=== PATIENT | female | born 1955 | race Caucasian/White ===

== ENCOUNTER 2016-10-12 19:38 | Emergency (ER) | payer MEDICAID ==
[~2016-10-12] VITALS: Ht 167.6 cm; Wt 78.5 kg
[2016-10-12 19:40] VITALS: Ht 167.6 cm; Wt 78.5 kg
[2016-10-12] MEDS ORDERED: ALBU2.5V2 AEROSOL (19:50)
[2016-10-12] MEDS ORDERED: ALBU6.7H INH (19:50)
[2016-10-12] MEDS ORDERED: NAPR220C11 PO (19:54)
[2016-10-12] MEDS ORDERED: IBUP-1724 PO (19:54)
[2016-10-12] MEDS ORDERED: DIPH25CA84 PO (19:54)
--- NOTE | 2016-10-12 19:55 | ERPDOC ---
Departure Disposition Decision Date: Oct 12, 2016 Disposition Decision Time: 21:39 (KYLE WEST APRN) Disposition: 01 DISCHARGED HOME, SELF-CARE Impression Impression (KYLE WEST APRN) Impression: Primary Impression: Upper respiratory infection, acute Additional Impression: COPD exacerbation Severity: Mild (KYLE WEST APRN) Condition: Improved Seen By: Mid-level only (KYLE WEST APRN) Patient Instructions: COPD (Chronic Obstructive Pulmonary Disease) (ED), Upper Respiratory Infection (ED) Problems/Meds/Labs Reviewed?: Yes Medications reviewed and manag: Yes (KYLE WEST APRN) Additional Instructions: 1. Use nebulized treatments as prescribed to help with shortness of air. 2. Take steroids as prescribed to help with inflammation in the lungs 3. Establish care with a local provider for follow up 4. Return to ER if you develop increased shortness of air or increasing chest pain. Follow up care ordered?: Yes Mental Status: Alert, Oriented (KYLE WEST APRN) Scripts Ipratropium/Albuterol Sulfate (Iprat-Albut 0.5-3(2.5) mg/3 ml) 3 Ml Ampul.neb 1 UNIT AEROSOL Q4H, #1 BOX Prov: KYLE WEST APRN 10/12/16 Prednisone (Prednisone) 20 Mg Tablet 60 MG PO WB for 5 Days, #15 TAB Take 3 (20 mg) tablets, by mouth, once a day with breakfast. Prov: KYLE WEST APRN 10/12/16 HPI - Dyspnea General Chief Complaint: Dyspnea/Respdistress Stated Complaint: DIFF BREATHING Time Seen by Provider: 19:45 Source: patient Exam Limitations: no limitations (KYLE WEST APRN) Time Seen by Provider: 20:47 (NOVEMBERPEG DO) HPI - Dyspnea Initial Comments Sammie is a 61 year old female with a history of COPD. Reports a upper respiratory illness developing three days ago with cough, congestion, low grade temp. Today felt more chest discomfort and shortness of air. History of what sounds like an empyema in the past with 3 1/2 week hospitalization at [facility] where she was in a coma for respiratory failure. Reports having left lung surgery and chest tubes. This happened in Aug 2014, was worried this was similar to that event. History of being on o2 but not recently. Moved to [place] from [place] within the past year, no local physician yet. Did use Proventil inhaler at home this am. Does have a nebulizer but did not use it today. Normally fairly active. Smokes 1/4 ppd. Occurred At: home Onset/Timing: Gradual Duration: other (3 days) Prior Episodes/Possible Cause: occasional episodes Associated Symptoms: chest pain, cough, shortness of breath Hx of Similar Symptoms: Yes (KYLE WEST APRN) Allergies: Coded Allergies: codeine (Verified Adverse Reaction, Unknown, VOMITING, 10/15/16) Past History Past Medical History Metabolic: hypertension Respiratory: COPD, pneumonia (KYLE WEST APRN) Surgical History General: other (left lung surgery) (KYLE WEST APRN) Vaccines Hx Influenza Vaccination: Yes Hx Pneumococcal Vaccination: No (KYLE WEST APRN) Social History Smoking Status: Current every day smoker # of Packs/Tins per Day: 1/4 Second Hand Exposure: Yes Substance Use Type: does not use Housing: house Household Members: family Current Occupational Status: unemployed (KYLE WEST APRN) Review of Systems Constitutional Constitutional: DENIES: fever (low grade temps) (KYLE WEST APRN) ENMT Sinuses: congestion Mouth/Throat: DENIES: sore throat (KYLE WEST APRN) Cardiovascular Cardiac: chest pain (KYLE WEST APRN) Pulmonary Respiratory: cough, dyspnea (KYLE WEST APRN) GI Upper Abdomen: DENIES: vomiting (KYLE WEST APRN) Integumentary Skin: DENIES: rash (KYLE WEST APRN) All other Systems All Other Systems: Reviewed and Negative (KYLE WEST APRN) Physical Exam General General Nourishment: well nourished, well developed, appears stated age, no acute distress (KYLE WEST APRN) Vitals and Pain First Documented Vital Signs Date Time Temp Pulse Resp B/P Pulse Ox O2 Delivery O2 Flow Rate FiO2 10/12/16 19:40 99.0 109 30 172/81 97 Room Air (NOVEMBER,PEG M DO) Vitals and Pain Weight: Kilograms: 78.500 Height (feet): 5 Height (inches): 6.00 Triage Pain Scale: (WEST,KYLE ICT HELP DESK TECHNICIAN) ENMT (brief) ENMT Brief: FOUND: mucosa moist, NOT FOUND: normal dentition (decayed teeth), pharnyx erythema (BRETT,KYLE ICT HELP DESK TECHNICIAN) Neck (brief) Neck: FOUND: trachea midline, NOT FOUND: JVD (WEST,KYLE ICT HELP DESK TECHNICIAN) Respiratory (brief) Respiratory: FOUND: wheezes (decreased aeration) (BRETT,KYLE ICT HELP DESK TECHNICIAN) Cardiovascular (brief) Cardiac: FOUND: other (tachycardia) (MIESHA WESTARA ICT HELP DESK TECHNICIAN) Abdomen (brief) Abdominal Brief: FOUND: bowel normo active x4, soft, NOT FOUND: tender (WEST, KYLE ICT HELP DESK TECHNICIAN) Lymphatic (brief) Lymphatic Brief: FOUND: adenopathy, NOT FOUND: lymphedema (MIESHA WESTARA ICT HELP DESK TECHNICIAN) Integumentary (brief) Integumentary Brief: FOUND: dry, pink, warm, NOT FOUND: rash (BRETT,KYLE ICT HELP DESK TECHNICIAN) Psychiatric (brief) Psychiatric Brief: FOUND: alert, attentive, normal affect, oriented (MIESHA WESTARA ICT HELP DESK TECHNICIAN) Differential Diagnoses Considering: Acute Bronchitis, COPD Exacerbation, Pneumonia (MIESHA WESTARA ICT HELP DESK TECHNICIAN) Progress Results/Orders Orders Procedure Category Date Status Time Iv Lock (Ed Only) EDM 10/12/16 Transmitted 19:51 Cbc W/Auto LAB 10/12/16 Complete Diff-Reflex Manual 19:51 Bmp - Basic Metabolic LAB 10/12/16 Complete Panel 19:51 EKG EKG 10/12/16 Taken 19:51 Chest, Pa & Lateral RAD 10/12/16 Resulted 19:51 Troponin I W LAB 10/12/16 Complete Hemolysis Index Albuterol/Ipratropium PHA 10/12/16 Complete (Duoneb) 20:00 Potassium Chloride PHA 10/12/16 Complete (Kdur) 21:00 D-Dimer LAB 10/12/16 Complete Ketorolac (Toradol) PHA 10/12/16 Complete 21:30 ( DO) Lab Results Laboratory Tests Test 10/12/16 20:30 White Blood Count 7.9T/MM3 Red Blood Count 4.48M/MM3 Hemoglobin 14.3GM/DL Hematocrit 42.1% Mean Corpuscular Volume 94.0UM3 Mean Corpuscular Hemoglobin 31.9UUG Mean Corpuscular Hemoglobin Concent 34.0GM/DL RDW Standard Deviation 45.7FL Platelet Count 227T/MM3 Mean Platelet Volume 10.7UM3 Immature Granulocyte % (Auto) 0.1% Neutrophils (%) (Auto) 76.1% Lymphocytes (%) (Auto) 18.1% Monocytes (%) (Auto) 5.3% Eosinophils (%) (Auto) 0.1% Basophils (%) (Auto) 0.3% Absolute Immature Granulocyte (auto 0.01T/MM3 Absolute Neutrophils (auto) 6.0T/MM3 Absolute Lymphocytes (auto) 1.4T/MM3 Absolute Monocytes (auto) 0.4T/MM3 Absolute Eosinophils (auto) 0.0T/MM3 Absolute Basophils (auto) 0.0T/MM3 D-Dimer 219NG/ML Turbidity < 20 Sodium Level 142MEQ/L Potassium Level 3.2MEQ/L Chloride Level 106MEQ/L Carbon Dioxide Level 22MEQ/L Anion Gap 14MEQ/L Blood Urea Nitrogen 15.0MG/DL Creatinine 0.9MG/DL Glomerular Filtration Rate Calc 64 BUN/Creatinine Ratio 17RATIO Glucose Level 124MG/DL Calculated Osmolality 275MOSM/KG Calcium Level 8.8MG/DL Icterus Index < 2 Troponin I < 0.012ng/ml Chemistry Specimen Hemolysis 20 () Medications Current ED Medications Albuterol/ Ipratropium (Duoneb) 3 ml O ONCE AEROSOL Last administered on 20:00; Start 10/12/16 at 20:00; Stop 10/12/16 at 21:57; Status DC Potassium Chloride (Kdur) 20 meq O ONCE PO Last administered on 10/12/16 21: 24; Start 10/12/16 at 21:00; Stop 10/12/16 at 21:57; Status DC Ketorolac Tromethamine (Toradol) 30 mg O ONCE IV Last administered on 21:22; Start 10/12/16 at 21:30; Stop 10/12/16 at 21:31; Status DC () Progress Progress 2140 - Toradol given for patient's chest discomfort which started over 24 hours ago. States that really helped. Discussed discharge plan to include nebulized treatments and steroids. She agrees to establish care with local provider, [facility]. (KYLE WEST APRN) EKG EKG : Rate: >100 Rhythm: sinus [place]: normal QRS: normal Intervals: normal ST/T: non-specific changes Interpreted by: signing physician (KYLE WEST APRN) Xray Xray : Xray: CXR PA/Lat Interpretation: Abnormal (POSS pleural effusion) (KYLE WEST APRN) KYLE WEST APRN Oct 12, 2016 19:55 NOVEMBERPEG DO Oct 16, 2016 00:53
[2016-10-12] MEDS ORDERED: ALBUTEROL/IPRATROPIUM INHAL. 2.5mg-0.5mg/3ml Neb. AEROSOL ONE (20:00)
--- NOTE | 2016-10-12 20:12 | NUR ---
LAB LAB AT BEDSIDE FOR BLOOD DRAW
[2016-10-12 20:37] LABS: BASOPHILS % (AUTO) 0.3 % (0-2); EOSINOPHILS % (AUTO) 0.1 % (0-4); HCT - HEMATOCRIT 42.1 % (36-46); HGB - HEMOGLOBIN 14.3 GM/DL (12-16); IMMATURE GRANULOCYTE # (AUTO) 0.01 T/MM3 (0.00-0.03); IMMATURE GRANULOCYTE % (AUTO) 0.1 % (0.0-0.5); LYMPHOCYTES # (AUTO) 1.4 T/MM3 (1-4.8); LYMPHOCYTES % (AUTO) 18.1 % (23-45); MEAN CORPUSCULAR HGB 31.9 UUG (26-34); MEAN PLATELET VOLUME 10.7 UM3 (9.4-12.4); MONOCYTES # (AUTO) 0.4 T/MM3 (0-0.8); MONOCYTES % (AUTO) 5.3 % (0-9.0); NEUTROPHILS % (AUTO) 76.1 % (33-66); RED BLOOD COUNT 4.48 M/MM3 (4.00-5.20); WBC - WHITE BLOOD COUNT 7.9 T/MM3 (4.5-11.0)
[2016-10-12 20:45] LABS: ANION GAP 14 MEQ/L (5-15); BUN/CREATININE RATIO 17 RATIO (6-26); CALCIUM 8.8 MG/DL (8.4-10.2); CHLORIDE 106 MEQ/L (98-107); CO2 - CARBON DIOXIDE 22 MEQ/L (22-30); CREATININE 0.9 MG/DL (0.7-1.2); GLOMERULAR FILTRATION RATE 64; GLUCOSE 124 MG/DL (65-110); POTASSIUM 3.2 MEQ/L (3.6-5); SODIUM 142 MEQ/L (134-144)
--- NOTE | 2016-10-12 20:49 | NUR ---
XRAY PATIENT TO RADIOLOGY PER CART, STABLE.
[2016-10-12] MEDS ORDERED: POTASSIUM CHLORIDE 20 MEQ TABLET PO ONE (21:00)
--- OUTSIDE RECORDS SUMMARY | 2016-10-12 21:11 | XMS REPORT | Referral Summary ---
Author Author [facility] Organization [facility] Address Unknown Phone Unavailable Care Team Providers Care Cell Maker Name Role Phone Justina Johnson Primary Care Physician [phone] Encounter [facility] [id number] Date(s): 05/07/15 - 05/07/15 [facility] [address] [place] [address] Discharge Diagnosis: Hypertension Discharge Diagnosis: Dental abscess Discharge Diagnosis: Nausea and vomiting Discharge Diagnosis: Chronic pain Discharge Disposition: 01-Home or Self Care Attending Physician: Fernando Ramirez DO Admitting Physician: Fernando Ramirez DO Vital Signs Most recent to 1 oldest [Reference Range]: Temperature Oral 36.6 degC [35.8-37.3 degC] (05/07/15 2:08 AM) Peripheral Pulse 86 bpm Rate [60-100 bpm] (05/07/15 5:49 AM) Heart Rate Monitored 77 bpm [60-100 bpm] (05/07/15 5:35 AM) Respiratory Rate 20 br/min [14-20 br/min] (05/07/15 5:49 AM) Blood Pressure 151/113 mmHg [90-140/60-90 mmHg] *HI* (05/07/15 5:49 AM) Mean Arterial 134 mmHg Pressure, Cuff (05/07/15 5:35 AM) SpO2 93 % (05/07/15 5:49 AM) Problem List Condition Effective Dates Status Health Status Informant Angina at Active patient rest(Confirmed) Chronic back Active patient pain(Confirmed) COPD (chronic Active patient obstructive pulmonary disease)(Confirmed) Heart Active patient disease(Confirmed) HTN Active patient (hypertension)(Confi rmed) Allergies, Adverse Reactions, Alerts Substance Reaction Severity Status codeine Active Medications Benadryl 0 Refill(s) Start Date: 06/07/14 Status: Ordered clindamycin 150 mg oral capsule 300 mg 2 caps, Oral, QID, X 7 days, # 56 caps, 0 Refill(s) Start Date: 05/07/15 Stop Date: 05/14/15 Status: Ordered cloNIDine 0 Refill(s) Start Date: 05/07/15 Status: Ordered ibuprofen 0 Refill(s) Start Date: 06/07/14 Status: Ordered ibuprofen 400 mg oral tablet 1 tabs, Oral, q8hr, as needed for fever/pain, # 30 tabs, 0 Refill(s) Start Date: 06/07/14 Status: Ordered methadone Oral, 0 Refill(s) Start Date: 06/07/14 Status: Ordered ondansetron 4 mg oral tablet, disintegrating 4 mg 1 tabs, Oral, q8hr, Nausea, # 20 tabs, 0 Refill(s) Start Date: 05/07/15 Stop Date: 05/15/15 Status: Ordered Phenergan 0 Refill(s) Start Date: 06/07/14 Status: Ordered Results Hematology Most recent to 1 oldest [Reference Range]: WBC [4.8-10.8 8.9 10*3/uL 10*3/uL] (05/07/15 3:10 AM) RBC [4.00-5.20] 4.42 (05/07/15 3:10 AM) Hgb [12.0-16.0 14.7 gm/dL gm/dL] (05/07/15 3:10 AM) Hct [37.0-47.0 %] 42.9 % (05/07/15 3:10 AM) MCV [82.0-99.0 fL] 97.1 fL (05/07/15 3:10 AM) MCH [27.0-32.0 pg] 33.3 pg *HI* (05/07/15 3:10 AM) MCHC [32.0-36.0 34.3 gm/dL gm/dL] (05/07/15 3:10 AM) RDW [11.5-14.5 %] 13.2 % (05/07/15 3:10 AM) Platelet [150-400 271 10*3/uL 10*3/uL] (05/07/15 3:10 AM) MPV [9.4-12.4 fL] 10.4 fL (05/07/15 3:10 AM) Immature 0.2 % Granulocytes (05/07/15 3:10 AM) [0.0-1.0 %] Neutrophils [51-75 52 % %] (05/07/15 3:10 AM) Lymphocytes [20-46 38 % %] (05/07/15 3:10 AM) Monocytes [4-11 %] 7 % (05/07/15 3:10 AM) Eosinophils [0-4 %] 2 % (05/07/15 3:10 AM) Basophils [0-2 %] 1 % (05/07/15 3:10 AM) Neutro Absolute 4.65 10*3 [1.90-7.00 10*3] (05/07/15 3:10 AM) Lymph Absolute 3.40 10*3 [0.80-3.30 10*3] *HI* (05/07/15 3:10 AM) [place] Absolute 0.58 10*3 [0.30-1.00 10*3] (05/07/15 3:10 AM) Eos Absolute 0.21 10*3 [0.00-0.50 10*3] (05/07/15 3:10 AM) Baso Absolute 0.06 10*3 [0.00-0.20 10*3] (05/07/15 3:10 AM) Nucleated RBC 0.0 /100 WBC Automated [0 /100 (05/07/15 3:10 AM) WBC] Chemistry Most recent to 1 oldest [Reference Range]: Sodium Lvl [136-144 137 mEq/L mEq/L] (05/07/15 3:10 AM) Potassium Lvl 4.3 mEq/L [3.6-5.1 mEq/L] (05/07/15 3:10 AM) Chloride [99-109 103 mEq/L mEq/L] (05/07/15 3:10 AM) CO2 [22-32 mEq/L] 25 mEq/L (05/07/15 3:10 AM) AGAP [3-20] 9 (05/07/15 3:10 AM) BUN [4-20 mg/dL] 10 mg/dL (05/07/15 3:10 AM) Glucose Lvl [70-100 86 mg/dL mg/dL] (05/07/15 3:10 AM) Creatinine Lvl 0.66 mg/dL [0.44-1.03 mg/dL] (05/07/15 3:10 AM) eGFR [>60] >60 1 (05/07/15 3:10 AM) Calcium Lvl 9.1 mg/dL [8.6-10.0 mg/dL] (05/07/15 3:10 AM) Albumin Lvl [3.5-4.8 4.3 gm/dL gm/dL] (05/07/15 3:10 AM) Total Protein 7.9 gm/dL [6.1-7.9 gm/dL] (05/07/15 3:10 AM) Globulin [1.9-4.3 3.6 gm/dL gm/dL] (05/07/15 3:10 AM) ALT [14-54 U/L] 19 U/L (05/07/15 3:10 AM) AST [15-41 U/L] 33 U/L (05/07/15 3:10 AM) Alk Phos [26-104 127 U/L U/L] *HI* (05/07/15 3:10 AM) Bili Total [0.2-1.2 0.6 mg/dL 2 mg/dL] (05/07/15 3:10 AM) Troponin [<0.06 <0.05 ng/mL ng/mL] (05/07/15 3:10 AM) Lipase Lvl [8-48 12 U/L U/L] (05/07/15 3:10 AM) 1Result Comment: Multiply eGFR results by 1.21 for race. 2Result Comment: Naproxen, specifically the metabolite O-desmethylnaproxen, may cause spurious elevation in Total Bilirubin levels. Urinalysis Most recent to 1 oldest [Reference Range]: UA Color Lt Yellow (05/07/15 3:10 AM) UA Appear Clear (05/07/15 3:10 AM) UA pH [5.0-8.0] 7.0 (05/07/15 3:10 AM) UA Leuk Est Negative [Negative] (05/07/15 3:10 AM) UA Nitrite Negative [Negative] (05/07/15 3:10 AM) UA Protein Negative [Negative] (05/07/15 3:10 AM) UA Glucose Negative [Negative] (05/07/15 3:10 AM) UA Ketones Negative [Negative] (05/07/15 3:10 AM) UA Urobilinogen Negative [<1.0] (05/07/15 3:10 AM) UA Bili [Negative] Negative (05/07/15 3:10 AM) UA Blood [Negative] Negative (05/07/15 3:10 AM) UA Spec Grav 1.008 [1.003-1.030] (05/07/15 3:10 AM) Type Clean Catch (05/07/15 3:10 AM) Immunizations Vaccine Date Refusal Reason hepatitis A adult vaccine 11/20/06 hepatitis B adult vaccine 11/21/06 Procedures No data available for this section Social History Social History Type Response Smoking Status Current every day smoker Assessment and Plan No data available for this section
--- OUTSIDE RECORDS SUMMARY | 2016-10-12 21:11 | XMS REPORT | Referral Summary ---
Author Author [facility] Organization [facility] Address Unknown Phone Unavailable Care Team Providers Care Applications Project Manager Name Role Phone Justina Johnson Primary Care Physician [phone] Encounter [facility] [id number] Date(s): 09/23/15 - 09/23/15 [facility] [address] [place] [address] Discharge Diagnosis: Encounter for wound re-check Discharge Diagnosis: Abscess Discharge Disposition: 01-Home or Self Care Vital Signs Most recent to 1 oldest [Reference Range]: Temperature Oral 36.8 degC [35.8-37.3 degC] (09/23/15 2:37 PM) Peripheral Pulse 95 bpm Rate [60-100 bpm] (09/23/15 2:37 PM) Respiratory Rate 20 br/min [14-20 br/min] (09/23/15 2:37 PM) Blood Pressure 159/85 mmHg [90-140/60-90 mmHg] *HI* (09/23/15 2:37 PM) SpO2 98 % (09/23/15 2:37 PM) Problem List Condition Effective Dates Status Health Status Informant Acute Active pain(Confirmed) Angina at Active patient rest(Confirmed) At risk for Active injury(Confirmed)1 At risk of pressure Active sore(Confirmed) Chronic back Active patient pain(Confirmed) COPD (chronic Active patient obstructive pulmonary disease)(Confirmed) Heart Active patient disease(Confirmed) HTN Active patient (hypertension)(Confi rmed) Hepatitis Active patient B(Confirmed) Hepatitis Active patient C(Confirmed) 1Problem added automatically by system based on initiation of Risk for Injury Plan of Care Allergies, Adverse Reactions, Alerts Substance Reaction Severity Status codeine Active Medications Bactrim DS 800 mg-160 mg oral tablet 2 tabs, Oral, BID, for infection, X 10 days, # 40 tabs, 0 Refill(s) Start Date: 09/20/15 Stop Date: 09/30/15 Status: Ordered Benadryl 50 mg, Oral, TID, as needed for allergy symptoms/sleep, 0 Refill(s) Start Date: 06/07/14 Status: Ordered cloNIDine 0.2 mg oral tablet 0.2 mg 1 tabs, Oral, Bedtime (once a day), 0 Refill(s) Start Date: 08/03/15 Status: Ordered ibuprofen 400 mg oral tablet 1 tabs, Oral, q8hr, as needed for fever/pain, # 30 tabs, 0 Refill(s) Start Date: 06/07/14 Status: Ordered lisinopril 20 mg oral tablet 20 mg 1 tabs, Oral, Daily, 0 Refill(s) Start Date: 08/09/15 Status: Ordered methadone 10 mg oral tablet 35 mg 3.5 tabs, Oral, BID, [facility], 0 Refill(s) Start Date: 08/03/15 Status: Ordered Phenergan 25 mg, Oral, TID, as needed for nausea/vomiting, 0 Refill(s) Start Date: 06/07/14 Status: Ordered Zoloft 50 mg oral tablet 50 mg 1 tabs, Oral, qAM, 0 Refill(s) Start Date: 08/09/15 Status: Ordered Results No data available for this section Immunizations Vaccine Date Refusal Reason hepatitis A adult vaccine 11/20/06 hepatitis B adult vaccine 11/21/06 influenza virus vaccine, inactivated 08/04/15 Patient Refuses Procedures Procedure Date Related Diagnosis Body Site Thoracotomy Social History Social History Type Response Smoking Status Current every day smoker; Tobacco use per day: Less than Pack Assessment and Plan No data available for this section
--- OUTSIDE RECORDS SUMMARY | 2016-10-12 21:11 | XMS REPORT | Referral Summary ---
Author Author [facility] Organization [facility] Address Unknown Phone Unavailable Care Team Providers Care Computer Language Coder Name Role Phone Justina Johnson Primary Care Physician [phone] Encounter [facility] [id number] Date(s): 06/30/15 - 06/30/15 [facility] [address] [place] [address] Discharge Diagnosis: Headache Discharge Diagnosis: Hypertension Discharge Disposition: 01-Home or Self Care Attending Physician: Richard Hurtado MD Admitting Physician: Richard Hurtado MD Vital Signs Most recent to 1 oldest [Reference Range]: Temperature Oral 36.6 degC [35.8-37.3 degC] (06/30/15 1:19 AM) Peripheral Pulse 67 bpm Rate [60-100 bpm] (06/30/15 5:19 AM) Heart Rate Monitored 84 bpm [60-100 bpm] (06/30/15 5:01 AM) Respiratory Rate 18 br/min [14-20 br/min] (06/30/15 5:19 AM) Blood Pressure 169/104 mmHg [90-140/60-90 mmHg] *HI* (06/30/15 5:19 AM) Mean Arterial 128 mmHg Pressure, Cuff (06/30/15 5:01 AM) SpO2 97 % (06/30/15 5:19 AM) Problem List Condition Effective Dates Status Health Status Informant Angina at Active patient rest(Confirmed) Chronic back Active patient pain(Confirmed) COPD (chronic Active patient obstructive pulmonary disease)(Confirmed) Heart Active patient disease(Confirmed) HTN Active patient (hypertension)(Confi rmed) Allergies, Adverse Reactions, Alerts Substance Reaction Severity Status codeine Active Medications Benadryl 0 Refill(s) Start Date: 06/07/14 Status: Ordered cloNIDine 0 Refill(s) Start Date: 05/07/15 Status: Ordered ibuprofen 0 Refill(s) Start Date: 06/07/14 Status: Ordered ibuprofen 400 mg oral tablet 1 tabs, Oral, q8hr, as needed for fever/pain, # 30 tabs, 0 Refill(s) Start Date: 06/07/14 Status: Ordered methadone Oral, 0 Refill(s) Start Date: 06/07/14 Status: Ordered Phenergan 0 Refill(s) Start Date: 06/07/14 Status: Ordered Zofran 4 mg oral tablet 4 mg 1 tabs, Oral, q6hr, Nausea or Vomiting, # 30 tabs, 0 Refill(s) Start Date: 06/30/15 Stop Date: 06/30/16 Status: Ordered Results Hematology Most recent to 1 oldest [Reference Range]: WBC [4.8-10.8 6.6 10*3/uL 10*3/uL] (06/30/15 1:47 AM) RBC [4.00-5.20] 4.12 (06/30/15 1:47 AM) Hgb [12.0-16.0 14.1 gm/dL gm/dL] (06/30/15 1:47 AM) Hct [37.0-47.0 %] 42.5 % (06/30/15 1:47 AM) MCV [82.0-99.0 fL] 103.2 fL *HI* (06/30/15 1:47 AM) MCH [27.0-32.0 pg] 34.2 pg *HI* (06/30/15 1:47 AM) MCHC [32.0-36.0 33.2 gm/dL gm/dL] (06/30/15 1:47 AM) RDW [11.5-14.5 %] 14.6 % *HI* (06/30/15 1:47 AM) Platelet [150-400 261 10*3/uL 10*3/uL] (06/30/15 1:47 AM) MPV [9.4-12.4 fL] 10.1 fL (06/30/15 1:47 AM) Immature 0.2 % Granulocytes (06/30/15 1:47 AM) [0.0-1.0 %] Neutrophils [51-75 56 % %] (06/30/15 1:47 AM) Lymphocytes [20-46 33 % %] (06/30/15 1:47 AM) Monocytes [4-11 %] 7 % (06/30/15 1:47 AM) Eosinophils [0-4 %] 4 % (06/30/15 1:47 AM) Basophils [0-2 %] 1 % (06/30/15 1:47 AM) Neutro Absolute 3.71 10*3 [1.90-7.00 10*3] (06/30/15 1:47 AM) Lymph Absolute 2.15 10*3 [0.80-3.30 10*3] (06/30/15 1:47 AM) [place] Absolute 0.44 10*3 [0.30-1.00 10*3] (06/30/15 1:47 AM) Eos Absolute 0.27 10*3 [0.00-0.50 10*3] (06/30/15 1:47 AM) Baso Absolute 0.04 10*3 [0.00-0.20 10*3] (06/30/15 1:47 AM) Nucleated RBC 0.0 /100 WBC Automated [0 /100 (06/30/15 1:47 AM) WBC] Chemistry Most recent to 1 oldest [Reference Range]: Sodium Lvl [136-144 142 mEq/L mEq/L] (06/30/15 1:47 AM) Potassium Lvl 4.3 mEq/L 1 [3.6-5.1 mEq/L] (06/30/15 1:47 AM) Chloride [99-109 108 mEq/L mEq/L] (06/30/15 1:47 AM) CO2 [22-32 mEq/L] 26 mEq/L (06/30/15 1:47 AM) AGAP [3-20] 8 (06/30/15 1:47 AM) BUN [4-20 mg/dL] 14 mg/dL (06/30/15 1:47 AM) Glucose Lvl [70-100 94 mg/dL mg/dL] (06/30/15 1:47 AM) Creatinine Lvl 0.76 mg/dL [0.44-1.03 mg/dL] (06/30/15 1:47 AM) eGFR [>60] >60 2 (06/30/15 1:47 AM) Calcium Lvl 8.4 mg/dL [8.6-10.0 mg/dL] *LOW* (06/30/15 1:47 AM) Albumin Lvl [3.5-4.8 4.0 gm/dL gm/dL] (06/30/15 1:47 AM) Total Protein 7.2 gm/dL [6.1-7.9 gm/dL] (06/30/15 1:47 AM) Globulin [1.9-4.3 3.2 gm/dL gm/dL] (06/30/15 1:47 AM) ALT [14-54 U/L] 34 U/L (06/30/15 1:47 AM) AST [15-41 U/L] 51 U/L *HI* (06/30/15 1:47 AM) Alk Phos [26-104 120 U/L U/L] *HI* (06/30/15 1:47 AM) Bili Total [0.2-1.2 0.5 mg/dL 3 mg/dL] (06/30/15 1:47 AM) Troponin [<0.06 <0.05 ng/mL ng/mL] (06/30/15 1:47 AM) 1Result Comment: Hemolyzed specimen. The following tests may be affected: ALT, AST, Potassium, and Total Bilirubin. 2Result Comment: Multiply eGFR results by 1.21 for race. 3Result Comment: Naproxen, specifically the metabolite O-desmethylnaproxen, may cause spurious elevation in Total Bilirubin levels. Immunizations Vaccine Date Refusal Reason hepatitis A adult vaccine 11/20/06 hepatitis B adult vaccine 11/21/06 Procedures No data available for this section Social History Social History Type Response Smoking Status Current every day smoker Assessment and Plan No data available for this section
--- OUTSIDE RECORDS SUMMARY | 2016-10-12 21:11 | XMS REPORT | Referral Summary ---
Author Author [facility] Organization [facility] Address Unknown Phone Unavailable Care Team Providers Care [employer] Name Role Phone Justina Johnson Primary Care Physician [phone] Encounter [facility] [id number] Date(s): 05/07/15 - 05/07/15 [facility] [address] [place] [address] Discharge Diagnosis: Hypertension Final: Periapical abscess without sinus Final: Unspecified abdominal pain Final: Nausea with vomiting, unspecified Final: Essential (primary) hypertension Final: Chronic obstructive pulmonary disease, unspecified Final: Nicotine dependence, unspecified, uncomplicated Discharge Diagnosis: Dental abscess Discharge Diagnosis: Nausea [...] Reaction Severity Status codeine Active Medications Benadryl 50 mg, Oral, TID, as needed [...] Refill(s) Start Date: 08/09/15 Status: Ordered Results Hematology Most recent to [...] 10*3 [0.80-3.30 10*3] *HI* (05/07/15 3:10 AM) [place] Absolute 0.58 10*3 [0.30-1.00 10*3] (05/07/15 3:10 [...]
--- OUTSIDE RECORDS SUMMARY | 2016-10-12 21:11 | XMS REPORT | Referral Summary ---
Author Author Via [facility] Organization Via [facility] Address Unknown Phone Unavailable Care Team Providers Care Construction Framer Name Role Phone Justina Johnson Primary Care Physician [phone] Encounter [facility] [id number] Date(s): 08/02/15 - 08/09/15 Via [facility] [address] [place] [address] Discharge Disposition: 03-Senior Living Facility Attending Physician: Obi Templeton MD Admitting Physician: Beltran Quan MD Vital Signs Most recent to 1 oldest [Reference Range]: Temperature Oral 36.5 degC [35.8-37.3 degC] (08/09/15 3:00 PM) Temperature Temporal 36.2 degC Artery [36.3-37.8 *LOW* degC] (08/05/15 7:00 AM) Peripheral Pulse 72 bpm Rate [60-100 bpm] (08/09/15 3:00 PM) Heart Rate Monitored 77 bpm [60-100 bpm] (08/06/15 3:58 PM) Respiratory Rate 18 br/min [14-20 br/min] (08/09/15 3:00 PM) Blood Pressure 109/65 mmHg [90-140/60-90 mmHg] (08/09/15 3:00 PM) Mean Arterial 112 mmHg Pressure, Cuff (08/05/15 8:45 AM) SpO2 96 % (08/09/15 3:00 PM) Problem List Condition Effective Dates Status Health Status Informant Acute Active pain(Confirmed) Angina at Active patient rest(Confirmed) At risk for Active injury(Confirmed)1 At risk of pressure Active sore(Confirmed) Chronic back Active patient pain(Confirmed) COPD (chronic Active patient obstructive pulmonary disease)(Confirmed) Heart Active patient disease(Confirmed) HTN Active patient (hypertension)(Confi rmed) 1Problem added automatically by system based on [...] to 1 oldest [Reference Range]: WBC [4.8-10.8 7.0 10*3/uL 10*3/uL] (08/05/15 4:11 AM) RBC [4.00-5.20] 3.78 *LOW* (08/05/15 4:11 AM) Hgb [12.0-16.0 12.3 gm/dL gm/dL] (08/05/15 4:11 AM) Hct [37.0-47.0 %] 39.2 % (08/05/15 4:11 AM) MCV [82.0-99.0 fL] 103.7 fL *HI* (08/05/15 4:11 AM) MCH [27.0-32.0 pg] 32.5 pg *HI* (08/05/15 4:11 AM) MCHC [32.0-36.0 31.4 gm/dL gm/dL] *LOW* (08/05/15 4:11 AM) RDW [11.5-14.5 %] 13.9 % (08/05/15 4:11 AM) Platelet [150-400 216 10*3/uL 10*3/uL] (08/05/15 4:11 AM) MPV [9.4-12.4 fL] 11.2 fL (08/05/15 4:11 AM) Immature 0.2 % Granulocytes (08/02/15 10:38 PM) [0.0-1.0 %] Neutrophils [51-75 83 % %] *HI* (08/02/15 10:38 PM) Lymphocytes [20-46 11 % %] *LOW* (08/02/15 10:38 PM) Monocytes [4-11 %] 5 % (08/02/15 10:38 PM) Eosinophils [0-4 %] 1 % (08/02/15 10:38 PM) Basophils [0-2 %] 0 % (08/02/15 10:38 PM) Neutro Absolute 7.89 10*3 [1.90-7.00 10*3] *HI* (08/02/15 10:38 PM) Lymph Absolute 1.06 10*3 [0.80-3.30 10*3] (08/02/15 10:38 PM) [place] Absolute 0.46 10*3 [0.30-1.00 10*3] (08/02/15 10:38 PM) Eos Absolute 0.08 10*3 [0.00-0.50 10*3] (08/02/15 10:38 PM) Baso Absolute 0.04 10*3 [0.00-0.20 10*3] (08/02/15 10:38 PM) Sed Rate [0-23] 5 (08/03/15 6:51 AM) Chemistry Most recent to 1 oldest [Reference Range]: Sodium Lvl [136-144 138 mEq/L mEq/L] (08/07/15 6:39 AM) Potassium Lvl 4.1 mEq/L [3.6-5.1 mEq/L] (08/07/15 6:39 AM) Chloride [99-109 101 mEq/L mEq/L] (08/07/15 6:39 AM) CO2 [22-32 mEq/L] 31 mEq/L (08/07/15 6:39 AM) AGAP [3-20] 6 (08/07/15 6:39 AM) BUN [4-20 mg/dL] 6 mg/dL (08/07/15 6:39 AM) Glucose Lvl [70-100 95 mg/dL mg/dL] (08/07/15 6:39 AM) Creatinine Lvl 0.73 mg/dL [0.44-1.03 mg/dL] (08/07/15 6:39 AM) eGFR [>60] >60 1 (08/07/15 6:39 AM) Calcium Lvl 8.8 mg/dL [8.6-10.0 mg/dL] (08/07/15 6:39 AM) Albumin Lvl [3.5-4.8 3.6 gm/dL gm/dL] (08/07/15 6:39 AM) Total Protein 6.1 gm/dL [6.1-7.9 gm/dL] (08/04/15 6:11 AM) Globulin [1.9-4.3 2.9 gm/dL gm/dL] (08/04/15 6:11 AM) ALT [14-54 U/L] 30 U/L (08/04/15 6:11 AM) AST [15-41 U/L] 75 U/L *HI* (08/04/15 6:11 AM) Alk Phos [26-104 96 U/L U/L] (08/04/15 6:11 AM) Bili Total [0.2-1.2 1.0 mg/dL 2 mg/dL] (08/04/15 6:11 AM) Magnesium Lvl 2.2 mg/dL [1.8-2.5 mg/dL] (08/06/15 6:00 AM) Phosphorus [2.4-4.7 3.5 mg/dL 3 mg/dL] (08/07/15 6:39 AM) Total CK [38-234 619 U/L U/L] *HI* (08/07/15 6:39 AM) Troponin [<0.06 <0.05 ng/mL ng/mL] (08/02/15 10:38 PM) Ammonia [9-35 27 mcmol/L mcmol/L] (08/04/15 6:11 AM) Vitamin B12 Lvl 275 pg/mL [213-816 pg/mL] (08/03/15 6:51 AM) Folate Lvl [7.0-31.4 13.6 ng/mL ng/mL] (08/03/15 6:51 AM) Prolactin [5.2-26.5 18.9 ng/mL ng/mL] (08/03/15 6:51 AM) Blood Glucose, 212 mg/dL Capillary [74-106 *HI* mg/dL] (08/04/15 10:00 AM) Hep A IgM Negative (08/03/15 6:51 AM) Hep Bs Ag Negative (08/03/15 6:51 AM) Hep C Ab Positive 4 *ABN* (08/03/15 6:51 AM) Hep B Core IgM Negative (08/03/15 6:51 AM) TSH with Reflex Free 0.79 T4 [0.35-5.50] (08/03/15 6:51 AM) Hgb A1c [4.1-5.6 %] 5.9 % *HI* (08/03/15 6:51 AM) eAvg Glucose 122.6 mg/dL (08/03/15 6:51 AM) Procalcitonin <0.05 ng/mL 5 [0.00-0.09 ng/mL] (08/03/15 6:51 AM) 1Result Comment: Multiply eGFR results by 1.21 for race. 2Result Comment: Naproxen, specifically the metabolite O-desmethylnaproxen, may cause spurious elevation in Total Bilirubin levels. 3Result Comment: High dosages of liposomal Amphotericin B (AmBisome) therapy or other drug preparations that use a liposomal envelope to facilitate drug delivery may cause falsely elevated results for phosphorus. 4Result Comment: If clinically indicated, Positive HCV EIA results may be confirmed by Hepatitis C RNA PCR. 5Result Comment: Normal: <0.1 ng/mL (infants >72 hrs - adults) Suspected Lower Respiratory Tract Infection 0.10-0.25 ng/mL=Low likelihood for bacterial infection; Antibiotics discouraged. >0.25 ng/mL=Increased likelihood for bacterial infection; Antibiotics encouraged. Suspected Sepsis: Strongly consider initiating antibiotics in all unstable patients. 0.10-0.50 ng/mL=Low likelihood for sepsis; Antibiotics discouraged. >0.50 ng/mL=Increased likelihood for sepsis; Antibiotics encouraged. Decisions on antibiotic use should not be based solely on procalcitonin levels. If antibiotics are administered, repeat procalcitonin testing should be obtained every 2-3 days to consider early antibiotic cessation. PCT is a dynamic biomarker and most useful when trends are analyzed over time in accompaniment with other clinical data. Interpretation should be based upon clinical context and algorithms. Therapeutic Drug Monitoring Most recent to 1 oldest [Reference Range]: Acetaminophen Lvl <10 ug/mL [10-30 ug/mL] (08/02/15 10:38 PM) Salicylate Lvl [0-30 <4 mg/dL mg/dL] (08/02/15 10:38 PM) Toxicology Most recent to 1 oldest [Reference Range]: Ethanol Lvl Not Detected (08/02/15 10:38 PM) U Amphetamine Scrn Negative (08/02/15 10:39 PM) U Cocaine Scrn Negative (08/02/15 10:39 PM) U Cannab Scrn Negative (08/02/15 10:39 PM) U Opiate Scrn Negative (08/02/15 10:39 PM) U PCP Scrn Negative (08/02/15 10:39 PM) U Benzodiazepine Negative Scrn (08/02/15 10:39 PM) U Barbiturate Scrn Negative (08/02/15 10:39 PM) Methadone Lvl Positive *ABN* (08/02/15 10:39 PM) Tricyclics Negative 1 (08/02/15 10:39 PM) 1Result Comment: Cut-off concentrations: Amphetamines: 1000 ng/mL Cocaine: 300 ng/mL Cannabinoid: 50 ng/mL Opiate: 300 ng/mL Phencyclidine (PCP): 25 ng/mL Benzodiazepine: 200 ng/mL Barbiturate: 200 ng/mL Methadone: 300 ng/mL Tricyclic: 300 ng/mL The urine drug screen assays are qualitative screens. A more specific GC/MS method must be performed to obtain a confirmed analytical result. Unconfirmed screening results must not be used for non-medical purposes(e.g. employment or legal testing) Urinalysis Most recent to 1 oldest [Reference Range]: UA Color Yellow (08/02/15 10:38 PM) UA Appear Sl Cloudy (08/02/15 10:38 PM) UA pH [5.0-8.0] 6.0 (08/02/15 10:38 PM) UA Leuk Est Trace [Negative] *ABN* (08/02/15 10:38 PM) UA Nitrite Negative [Negative] (08/02/15 10:38 PM) UA Protein Pos 2+ [Negative] *ABN* (08/02/15 10:38 PM) UA Glucose Negative [Negative] (08/02/15 10:38 PM) UA Ketones Negative [Negative] (08/02/15 10:38 PM) UA Urobilinogen Negative [<1.0] (08/02/15 10:38 PM) UA Bili [Negative] Negative (08/02/15 10:38 PM) UA Blood [Negative] Negative (08/02/15 10:38 PM) UA Spec Grav 1.020 [1.003-1.030] (08/02/15 10:38 PM) Type Clean Catch (08/02/15 10:38 PM) UA WBC [0-4] 5-10 *ABN* (08/02/15 10:38 PM) UA RBC [0-2] 5-10 *ABN* (08/02/15 10:38 PM) Epithelial Cells 2-5 (08/02/15 10:38 PM) UA Bacteria Rare (08/02/15 10:38 PM) UA Hyal Cast [0-3] 1-3 (08/02/15 10:38 PM) Microbiology Reports TEST: Blood Culture STATUS: Auth (Verified) BODY SITE: SOURCE: Blood COLLECTED DATE/TIME: 08/03/15 6:51 AM Blood Culture No growth after 5 days of incubation. Immunizations Vaccine Date Refusal Reason hepatitis A adult vaccine 11/20/06 hepatitis B adult vaccine 11/21/06 influenza virus vaccine, inactivated 08/04/15 Patient Refuses Procedures Procedure Date Related Diagnosis Body Site Thoracotomy Social History Social History Type Response Smoking Status Current every day smoker Assessment and Plan No data available for this section
--- OUTSIDE RECORDS SUMMARY | 2016-10-12 21:12 | XMS REPORT | Continuity of Care Document ---
Author Author Via [facility] Organization [facility] Address Unknown Phone Unavailable Allergies Active Description Code Type Severity Reaction Onset Reported/Identified Relationship to Patient Clinical Status Yes No Allergy Information Drug Allergy N/A N/A 12/03/2012 Yes No Known Drug Allergies Drug Allergy N/A N/A 12/03/2012 Yes No Known Allergies Drug Allergy N/A N/A 12/07/2012 Yes No Known Food Allergies Food Allergy N/A N/A 12/07/2012 Medications Problems Date Dx Coded Attending Type Code Diagnosis Diagnosed By 12/03/2012 Prashant Schaefer MD Final 276.1 HYPOSMOLALITY 12/03/2012 Prashant Schaefer MD Final 300.00 ANXIETY STATE NOS 12/03/2012 Prashant Schaefer MD Final 305.1 TOBACCO USE DISORDER 12/03/2012 Prashant Schaefer MD Final 338.29 CHRONIC PAIN NEC 12/03/2012 Prashant Schaefer MD Final 481 PNEUMOCOCCAL PNEUMONIA 12/03/2012 Prashant Schaefer MD Final 482.2 H. INFLUENZAE PNEUMONIA 12/03/2012 Prashant Schaefer MD Final 491.21 OCB W EXACERBATION 12/03/2012 Prashant Schaefer MD Final 518.81 AC RESPIRATORY FAILURE 12/03/2012 Prashant Schaefer MD Admitting 786.05 SHORTNESS OF BREATH Procedures Results Encounters ACCT No. Visit Date/Time Discharge Status Pt. Type Provider Facility Loc./Unit Complaint [id number] 12/03/2012 15:39:00 2012 18:11:00 DIS Inpatient Prashant Schaefer MD Via [facility] [address] F8SW
--- OUTSIDE RECORDS SUMMARY | 2016-10-12 21:12 | XMS REPORT | Referral Summary ---
Author Author [facility] Organization [facility] Address Unknown Phone Unavailable Care Team Providers Care Special Deputy Sheriff Name Role Phone AlexJustina Primary Care Physician [phone] Encounter [facility] [id number] Date(s): 09/20/15 - 09/20/15 [facility] [address] [place] [address] Discharge Diagnosis: Abscess of right forearm Discharge Diagnosis: Right arm cellulitis Discharge Disposition: 01-Home or Self Care Attending Physician: Richard Hurtado MD Admitting Physician: Richard Hurtado MD Vital Signs Most recent to 1 oldest [Reference Range]: Temperature Oral 36.5 degC [35.8-37.3 degC] (09/20/15 12:28 PM) Peripheral Pulse 94 bpm Rate [60-100 bpm] (09/20/15 2:21 PM) Respiratory Rate 20 br/min [14-20 br/min] (09/20/15 2:21 PM) Blood Pressure 161/95 mmHg [90-140/60-90 mmHg] *HI* (09/20/15 2:21 PM) SpO2 97 % (09/20/15 2:21 PM) Problem List Condition Effective Dates Status [...]
--- OUTSIDE RECORDS SUMMARY | 2016-10-12 21:12 | XMS REPORT ---
Author Author [facility], Via [facility] Unknown Address Unknown Phone Unavailable Allergies, Adverse Reactions, Alerts * No Latex Allergy. * No IV Contrast Allergy. * No Known Drug Allergies. * No Known Food Allergies. * No Known Allergies. Problems * Pain* Status:Active. * Respiratory System Process Impairment* Status:Active. Procedures No Procedures Documented. Medication It is the responsibility of the patient or patient volunteer patient representative to confirm the list of medications with either the patient's personal care provider or the patient's follow-up care provider to ensure the patient has an appropriate list of medications to take at home. Discharge medications* methaDONE 10 mg/mL Concentrate, Ordered By: Misbah Schaefer Directions: 10 mL oral daily * albuterol sulfate 2.5 mg/3 mL (0.083 %) Solution for Nebulization, Ordered By : Misbah Schaefer Directions: 3 mL by inhalation every four hours PRN shortness of breath * albuterol sulfate 90 mcg HFA Aerosol Inhaler, Ordered By: Misbah Schaefer Directions: 2 puff by inhalation every four hours PRN shortness of breath * ibuprofen 200 mg Tablet, Ordered By: Misbah Schaefer Directions: 4 tablet oral twice a day PRN pain * guaiFENesin 100 mg/5 mL Liquid, Ordered By: Misbah Schaefer Directions: 5 mL oral every four hours PRN COUGH * levofloxacin (LevaQUIN) 750 mg Tablet, Ordered By: Misbah Schaefer Directions: 1 tablet oral Daily at 10 AM _ Additional Instructions: for 1 week * ALPRAZolam 0.5 mg Tablet, Ordered By: Misbah Schaefer Directions: 1 tablet oral twice a day PRN ANXIETY * Prednisone 10mg 3 tab for 3 days, 2 tab for 3 days, 1 tab for 3 days then stop * Reguler diet * Activity as tolerated * Follow up with Alycia Johnson MD in 1 week Stopped medications* None Results LAB--BEDSIDE TESTING from 12/03/2012 9:44 PMGlucose NPT 318 mg/dL H (70-100 mg/ dL) LAB--BEDSIDE TESTING from 12/03/2012 11:17 PMGlucose NPT 221 mg/dL H (70-100 mg/ dL) LAB--BEDSIDE TESTING from 12/04/2012 6:19 AMGlucose NPT 188 mg/dL H (70-100 mg/ dL) LAB--BEDSIDE TESTING from 12/04/2012 10:01 AMGlucose NPT 301 mg/dL H (70-100 mg/ dL) LAB--BEDSIDE TESTING from 12/04/2012 3:50 PMGlucose NPT 205 mg/dL H (70-100 mg/ dL) LAB--BEDSIDE TESTING from 12/04/2012 9:12 PMGlucose NPT 231 mg/dL H (70-100 mg/ dL) LAB--BEDSIDE TESTING from 12/05/2012 5:51 AMGlucose NPT 152 mg/dL H (70-100 mg/ dL) LAB--BEDSIDE TESTING from 12/05/2012 10:01 AMGlucose NPT 209 mg/dL H (70-100 mg/ dL) LAB--BEDSIDE TESTING from 12/05/2012 4:54 PMGlucose NPT 200 mg/dL H (70-100 mg/ dL) LAB--BEDSIDE TESTING from 12/05/2012 9:59 PMGlucose NPT 206 mg/dL H (70-100 mg/ dL) LAB--BEDSIDE TESTING from 12/06/2012 5:42 AMGlucose NPT 112 mg/dL H (70-100 mg/ dL) LAB--BEDSIDE TESTING from 12/06/2012 10:38 AMGlucose NPT 83 mg/dL (70-100 mg/dL) LAB--BEDSIDE TESTING from 12/06/2012 3:14 PMGlucose NPT 151 mg/dL H (70-100 mg/ dL) LAB--BEDSIDE TESTING from 12/06/2012 4:26 PMGlucose NPT 183 mg/dL H (70-100 mg/ dL) LAB--BEDSIDE TESTING from 12/06/2012 10:58 PMGlucose NPT 174 mg/dL H (70-100 mg/ dL) LAB--BEDSIDE TESTING from 12/07/2012 5:46 AMGlucose NPT 108 mg/dL H (70-100 mg/ dL) LAB--BEDSIDE TESTING from 12/07/2012 11:03 AMGlucose NPT 183 mg/dL H (70-100 mg/ dL) LAB--BEDSIDE TESTING from 12/07/2012 7:57 PMGlucose NPT 136 mg/dL H (70-100 mg/ dL) LAB--BEDSIDE TESTING from 12/08/2012 5:49 AMGlucose NPT 98 mg/dL (70-100 mg/dL) LAB--BEDSIDE TESTING from 12/08/2012 10:35 AMGlucose NPT 123 mg/dL H (70-100 mg/ dL) LAB--BEDSIDE TESTING from 12/08/2012 2:36 PMGlucose NPT 216 mg/dL H (70-100 mg/ dL) LAB--BEDSIDE TESTING from 12/08/2012 8:13 PMGlucose NPT 165 mg/dL H (70-100 mg/ dL) LAB--BEDSIDE TESTING from 12/09/2012 5:55 AMGlucose NPT 117 mg/dL H (70-100 mg/ dL) LAB--BEDSIDE TESTING from 12/09/2012 10:04 AMGlucose NPT 140 mg/dL H (70-100 mg/ dL) LAB--CHEMISTRY from 12/04/2012 5:13 AMAnion Gap 7 (3-20 ) B-Type Natriuretic Pep. 223 pg/mL H (0-99 pg/mL) BUN 17 mg/dL (4-20 mg/dL) Calcium 8.1 mg/dL L (8.6-10.0 mg/dL) Chloride 99 mEq/L (99-109 mEq/L) CO2 25 mEq/L (22-32 mEq/L) Creatinine 0.75 mg/dL (0.44-1.03 mg/dL) eGFR >60 (>60- ) Glucose 136 mg/dL H (70-100 mg/dL) Potassium 4.1 mEq/L (3.6-5.1 mEq/L) Magnesium 2.0 mg/dL (1.8-2.5 mg/dL) Sodium 131 mEq/L L (136-144 mEq/L) Phosphorus 3.6 mg/dL (2.4-4.7 mg/dL) Estimated Average Glucose 145.6 mg/dL Hemoglobin A1C 6.7 % H (4.1-5.6 %) LAB--CHEMISTRY from 12/05/2012 6:05 AMAnion Gap 9 (3-20 ) Albumin 2.5 g/dL L (3.5-4.8 g/dL) BUN 23 mg/dL H (4-20 mg/dL) Calcium 8.3 mg/dL L (8.6-10.0 mg/dL) Chloride 95 mEq/L L (99-109 mEq/L) CO2 24 mEq/L (22-32 mEq/L) Creatinine 0.90 mg/dL (0.44-1.03 mg/dL) eGFR >60 (>60- ) Glucose 154 mg/dL H (70-100 mg/dL) Potassium 4.0 mEq/L (3.6-5.1 mEq/L) Sodium 128 mEq/L L (136-144 mEq/L) Phosphorus 3.7 mg/dL (2.4-4.7 mg/dL) LAB--CHEMISTRY from 12/06/2012 5:38 AMAnion Gap 8 (3-20 ) Albumin 2.5 g/dL L (3.5-4.8 g/dL) BUN 21 mg/dL H (4-20 mg/dL) Calcium 8.1 mg/dL L (8.6-10.0 mg/dL) Chloride 101 mEq/L (99-109 mEq/L) CO2 26 mEq/L (22-32 mEq/L) Creatinine 0.80 mg/dL (0.44-1.03 mg/dL) eGFR >60 (>60- ) Glucose 97 mg/dL (70-100 mg/dL) Potassium 3.7 mEq/L (3.6-5.1 mEq/L) Sodium 135 mEq/L L (136-144 mEq/L) Phosphorus 3.4 mg/dL (2.4-4.7 mg/dL) LAB--CHEMISTRY from 12/07/2012 5:40 AMAnion Gap 10 (3-20 ) Albumin 2.5 g/dL L (3.5-4.8 g/dL) BUN 13 mg/dL (4-20 mg/dL) Calcium 8.0 mg/dL L (8.6-10.0 mg/dL) Chloride 97 mEq/L L (99-109 mEq/L) CO2 29 mEq/L (22-32 mEq/L) Creatinine 0.59 mg/dL (0.44-1.03 mg/dL) eGFR >60 (>60- ) Glucose 99 mg/dL (70-100 mg/dL) Potassium 4.4 mEq/L (3.6-5.1 mEq/L) Sodium 136 mEq/L (136-144 mEq/L) Phosphorus 3.7 mg/dL (2.4-4.7 mg/dL) LAB--CHEMISTRY from 12/08/2012 6:35 AMAnion Gap 8 (3-20 ) Albumin 2.5 g/dL L (3.5-4.8 g/dL) BUN 9 mg/dL (4-20 mg/dL) Calcium 8.3 mg/dL L (8.6-10.0 mg/dL) Chloride 97 mEq/L L (99-109 mEq/L) CO2 29 mEq/L (22-32 mEq/L) Creatinine 0.58 mg/dL (0.44-1.03 mg/dL) eGFR >60 (>60- ) Glucose 113 mg/dL H (70-100 mg/dL) Potassium 4.4 mEq/L (3.6-5.1 mEq/L) Sodium 134 mEq/L L (136-144 mEq/L) Phosphorus 3.3 mg/dL (2.4-4.7 mg/dL) LAB--CHEMISTRY from 12/09/2012 6:53 AMAnion Gap 9 (3-20 ) Albumin 2.7 g/dL L (3.5-4.8 g/dL) BUN 14 mg/dL (4-20 mg/dL) Calcium 8.5 mg/dL L (8.6-10.0 mg/dL) Chloride 96 mEq/L L (99-109 mEq/L) CO2 28 mEq/L (22-32 mEq/L) Creatinine 0.62 mg/dL (0.44-1.03 mg/dL) eGFR >60 (>60- ) Glucose 88 mg/dL (70-100 mg/dL) Potassium 4.2 mEq/L (3.6-5.1 mEq/L) Sodium 133 mEq/L L (136-144 mEq/L) Phosphorus 4.3 mg/dL (2.4-4.7 mg/dL) LAB--HEMATOLOGY from 12/04/2012 5:13 AMAbsolute Basophils 0.01 THOUS (0.00-0.20 THOUS) Absolute Eosinophils 0.00 THOUS (0.00-0.50 THOUS) Absolute Lymphocytes 0.91 THOUS (0.80-3.30 THOUS) Absolute Monocytes 0.28 THOUS L (0.30-1.00 THOUS) Absolute Neutrophils 10.77 THOUS H (1.90-7.00 THOUS) HCT 35.6 % L (37.0-47.0 %) HGB 11.9 g/dl L (12.0-16.0 g/dl) MCH 31.4 pg (27.0-32.0 pg) MCHC 33.4 g/dL (32.0-36.0 g/dL) MCV 93.9 fL (82.0-99.0 fL) MPV 10.3 fL (9.4-12.4 fL) Platelet Count 202 K/uL (150-400 K/uL) RBC 3.79 M/uL L (4.00-5.20 M/uL) RDW 15.4 % H (11.5-14.5 %) WBC 12.1 K/uL H (4.8-10.8 K/uL) Basophils 0 % (0-2 %) Eosinophils 0 % (0-4 %) Immature Granulocytes 0.7 % (0.0-1.0 %) Lymphocytes 8 % L (20-46 %) Monocytes 2 % L (4-11 %) Nucleated RBC Automated 0.0 /100 WBC (0 /100 WBC) Neutrophils 89 % H (51-75 %) LAB--HEMATOLOGY from 12/05/2012 6:05 AMAbsolute Basophils 0.03 THOUS (0.00-0.20 THOUS) Absolute Eosinophils 0.00 THOUS (0.00-0.50 THOUS) Absolute Lymphocytes 0.47 THOUS L (0.80-3.30 THOUS) Absolute Monocytes 0.70 THOUS (0.30-1.00 THOUS) Absolute Neutrophils 22.37 THOUS H (1.90-7.00 THOUS) HCT 34.9 % L (37.0-47.0 %) HGB 11.8 g/dl L (12.0-16.0 g/dl) MCH 31.1 pg (27.0-32.0 pg) MCHC 33.8 g/dL (32.0-36.0 g/dL) MCV 92.1 fL (82.0-99.0 fL) MPV 10.5 fL (9.4-12.4 fL) Platelet Count 231 K/uL (150-400 K/uL) RBC 3.79 M/uL L (4.00-5.20 M/uL) RDW 15.2 % H (11.5-14.5 %) WBC 23.3 K/uL H (4.8-10.8 K/uL) Bands 31 % H (0-8 %) Basophils 0 % (0-2 %) Eosinophils 0 % (0-4 %) Lymphocytes 2 % L (20-46 %) Monocytes 3 % L (4-11 %) Nucleated RBC Automated 0.0 /100 WBC (0 /100 WBC) Differential Reviewed Neutrophils 65 % (51-75 %) Toxic Granulation Occasional A LAB--HEMATOLOGY from 12/06/2012 5:38 AMAbsolute Basophils 0.05 THOUS (0.00-0.20 THOUS) Absolute Eosinophils 0.21 THOUS (0.00-0.50 THOUS) Absolute Lymphocytes 1.27 THOUS (0.80-3.30 THOUS) Absolute Monocytes 0.64 THOUS (0.30-1.00 THOUS) Absolute Neutrophils 18.66 THOUS H (1.90-7.00 THOUS) HCT 37.9 % (37.0-47.0 %) HGB 12.9 g/dl (12.0-16.0 g/dl) MCH 31.6 pg (27.0-32.0 pg) MCHC 34.0 g/dL (32.0-36.0 g/dL) MCV 92.9 fL (82.0-99.0 fL) MPV 10.2 fL (9.4-12.4 fL) Platelet Count 266 K/uL (150-400 K/uL) RBC 4.08 M/uL (4.00-5.20 M/uL) RDW 15.5 % H (11.5-14.5 %) WBC 21.2 K/uL H (4.8-10.8 K/uL) Bands 10 % H (0-8 %) Basophils 0 % (0-2 %) Eosinophils 1 % (0-4 %) Lymphocytes 6 % L (20-46 %) Metamyelocytes 3 % H (0-1 %) Monocytes 3 % L (4-11 %) Nucleated RBC Automated 0.0 /100 WBC (0 /100 WBC) Differential Reviewed Neutrophils 78 % H (51-75 %) LAB--HEMATOLOGY from 12/07/2012 5:40 AMAbsolute Basophils 0.05 THOUS (0.00-0.20 THOUS) Absolute Eosinophils 0.03 THOUS (0.00-0.50 THOUS) Absolute Lymphocytes 2.11 THOUS (0.80-3.30 THOUS) Absolute Monocytes 0.15 THOUS L (0.30-1.00 THOUS) Absolute Neutrophils 12.38 THOUS H (1.90-7.00 THOUS) HCT 38.8 % (37.0-47.0 %) HGB 13.1 g/dl (12.0-16.0 g/dl) MCH 31.7 pg (27.0-32.0 pg) MCHC 33.8 g/dL (32.0-36.0 g/dL) MCV 93.9 fL (82.0-99.0 fL) MPV 9.6 fL (9.4-12.4 fL) Platelet Count 276 K/uL (150-400 K/uL) RBC 4.13 M/uL (4.00-5.20 M/uL) RDW 15.8 % H (11.5-14.5 %) WBC 15.1 K/uL H (4.8-10.8 K/uL) Atypical Lymphs 1 % Bands 2 % (0-8 %) Basophils 0 % (0-2 %) Eosinophils 0 % (0-4 %) Lymphocytes 13 % L (20-46 %) Metamyelocytes 2 % H (0-1 %) Monocytes 1 % L (4-11 %) Myelocytes 1 % Nucleated RBC Automated 0.0 /100 WBC (0 /100 WBC) Differential Reviewed Neutrophils 80 % H (51-75 %) LAB--HEMATOLOGY from 12/08/2012 6:35 AMHCT 41.4 % (37.0-47.0 %) HGB 13.9 g/dl (12.0-16.0 g/dl) MCH 31.4 pg (27.0-32.0 pg) MCHC 33.6 g/dL (32.0-36.0 g/dL) MCV 93.7 fL (82.0-99.0 fL) MPV 9.8 fL (9.4-12.4 fL) Platelet Count 315 K/uL (150-400 K/uL) RBC 4.42 M/uL (4.00-5.20 M/uL) RDW 15.7 % H (11.5-14.5 %) WBC 16.3 K/uL H (4.8-10.8 K/uL) LAB--HEMATOLOGY from 12/09/2012 6:00 AMAbsolute Basophils 0.00 THOUS (0.00-0.20 THOUS) Absolute Eosinophils 0.00 THOUS (0.00-0.50 THOUS) Absolute Lymphocytes 4.52 THOUS H (0.80-3.30 THOUS) Absolute Monocytes 0.62 THOUS (0.30-1.00 THOUS) Absolute Neutrophils 10.45 THOUS H (1.90-7.00 THOUS) HCT 41.9 % (37.0-47.0 %) HGB 14.0 g/dl (12.0-16.0 g/dl) MCH 31.5 pg (27.0-32.0 pg) MCHC 33.4 g/dL (32.0-36.0 g/dL) MCV 94.2 fL (82.0-99.0 fL) MPV 10.7 fL (9.4-12.4 fL) Platelet Count 211 K/uL (150-400 K/uL) RBC 4.45 M/uL (4.00-5.20 M/uL) RDW 15.8 % H (11.5-14.5 %) WBC 15.6 K/uL H (4.8-10.8 K/uL) Bands 3 % (0-8 %) Basophils 0 % (0-2 %) Eosinophils 0 % (0-4 %) Lymphocytes 29 % (20-46 %) Monocytes 4 % (4-11 %) Nucleated RBC Automated 0.0 /100 WBC (0 /100 WBC) Differential Manual A Neutrophils 64 % (51-75 %) Toxic Granulation Occasional A LAB--MICROBIOLOGY from 12/04/2012 3:15 PMS pneumoniae Urine Antigen Source: Urine Collected: 12/04/12 15:15 Site: Clean Catch Received : 12/04/12 15:30 Order#: [id number] S pneumoniae Urine Antigen FINAL 12/04/12 15:54 Negative GOLDMAN FOR RESULTS: * - NEW RESULT - RESULT WAS MODIFIED AFTER FINAL STATUS SET
--- NOTE | 2016-10-12 21:16 | NUR ---
REPORT REPORT GIVEN TO MICHELET MENDIOLA RN
[2016-10-12] MEDS ORDERED: KETOROLAC 30mg/ml INJECTION IV ONE (21:30)
[2016-10-12] MEDS ORDERED: IPRA3AMP AEROSOL (21:45)
[2016-10-12] MEDS ORDERED: PRED20TA PO (21:45)
[2016-10-12 21:55] VITALS: BP 132/71; PULSE 104; RESP 53; TEMP 99; O2SAT 95
--- NOTE | 2016-10-14 13:24 | DI ---
INDICATION: ITS.REASON: cough, chest pain PROCEDURE: CHEST 2-VIEWS UPRIGHT (PA \T\ LAT) Encounter: Initial COMPARISON: None FINDINGS: The lungs are clear without evidence of focal abnormal airspace opacity. There is no pleural effusion or pneumothorax. The heart size, mediastinal contours and pulmonary vascularity are within normal limits. Degenerative change in the spine. IMPRESSION: No acute cardiopulmonary disease. .
== END 2016-10-12 21:55 | disposition home or self-care (01) ==
LOC: ED 19:38
DX: J44.1 Chronic obstructive pulmonary disease with (acute) exacerbation (principal); J06.9 Acute upper respiratory infection, unspecified; F17.200 Nicotine dependence, unspecified, uncomplicated
CPT/HCPCS: 36415; 71020; 80048; 84484; 85025; 85379; 93005; 94640; 96374; 99284; J1885

== ENCOUNTER 2016-10-15 10:19 | Emergency (ER) | payer MEDICAID ==
[~2016-10-15] VITALS: Ht 167.6 cm; Wt 78.9 kg
[~2016-10-15 10:19] MED LIST: ALBU2.5V2 AEROSOL; ALBU6.7H INH; DIPH25CA84 PO; IBUP-1724 PO; IPRA3AMP AEROSOL; NAPR220C11 PO; PRED20TA PO
[2016-10-15 10:20] VITALS: Ht 167.6 cm; Wt 78.9 kg
--- OUTSIDE RECORDS SUMMARY | 2016-10-15 10:23 | XMS REPORT | Continuity of Care Document ---
Author Author [facility] Organization [facility] Address Unknown Phone Unavailable Allergies [...] Status Pt. Type Provider Facility Loc./Unit Complaint [id number] 12/03/2012 15:39:00 2012 18:11:00 DIS Inpatient Prashant Schaefer MD [facility] [place] [facility]
--- OUTSIDE RECORDS SUMMARY | 2016-10-15 10:23 | XMS REPORT ---
Author Author [place], [facility] Unknown Address Unknown Phone Unavailable Allergies, Adverse Reactions, Alerts * No Latex Allergy. * No IV Contrast Allergy. * No Known Drug Allergies. * No Known Food Allergies. * No Known Allergies. Problems * Pain* Status:Active. * Respiratory System Process Impairment* Status:Active. Procedures No Procedures Documented. Medication It is the responsibility of the patient or patient territory account representative to confirm the list of medications [...] Clean Catch Received : 12/04/12 15:30 Order#: [id number] S pneumoniae Urine Antigen FINAL 12/04/12 15:54 Negative GOLDMAN FOR RESULTS: * - NEW RESULT - RESULT WAS MODIFIED AFTER FINAL STATUS SET
--- NOTE | 2016-10-15 10:33 | NUR ---
PROVIDER DR. PORTER AT BEDSIDE FOR EXAM.
[2016-10-15] MEDS ORDERED: ALBUTEROL/IPRATROPIUM INHAL. 2.5mg-0.5mg/3ml Neb. AEROSOL ONE ×2 (10:45→12:15)
--- OUTSIDE RECORDS SUMMARY | 2016-10-15 10:50 | XMS REPORT | Continuity of Care Document ---
Author Author [facility] Organization [facility] Address Unknown Phone Unavailable Allergies [...] Status Pt. Type Provider Facility Loc./Unit Complaint [id number] 12/03/2012 15:39:00 2012 18:11:00 DIS Inpatient Prashant Schaefer MD [facility] [id number]
--- OUTSIDE RECORDS SUMMARY | 2016-10-15 10:50 | XMS REPORT ---
Author Author [place], [facility] Unknown Address Unknown Phone Unavailable Allergies, Adverse Reactions, Alerts * No Latex Allergy. * No IV Contrast Allergy. * No Known Drug Allergies. * No Known Food Allergies. * No Known Allergies. Problems * Pain* Status:Active. * Respiratory System Process Impairment* Status:Active. Procedures No Procedures Documented. Medication It is the responsibility of the patient or patient customer service representative teacher to confirm the list of medications with [...] Clean Catch Received : 12/04/12 15:30 Order#: [id number] S pneumoniae Urine Antigen FINAL 12/04/12 15:54 Negative GOLDMAN FOR RESULTS: * - NEW RESULT - RESULT WAS MODIFIED AFTER FINAL STATUS SET
--- NOTE | 2016-10-15 11:05 | NUR ---
XRAY PT TO XRAY BY CART AT THIS TIME.
[2016-10-15 11:14] LABS: BASOPHILS % (AUTO) 0.4 % (0-2); EOSINOPHILS % (AUTO) 0.2 % (0-4); HCT - HEMATOCRIT 39.7 % (36-46); HGB - HEMOGLOBIN 13.1 GM/DL (12-16); IMMATURE GRANULOCYTE # (AUTO) 0.02 T/MM3 (0.00-0.03); IMMATURE GRANULOCYTE % (AUTO) 0.2 % (0.0-0.5); LYMPHOCYTES # (AUTO) 2.4 T/MM3 (1-4.8); LYMPHOCYTES % (AUTO) 29.1 % (23-45); MEAN CORPUSCULAR HGB 31.8 UUG (26-34); MEAN CORPUSCULAR VOLUME 96.4 UM3 (80-100); MEAN PLATELET VOLUME 10.7 UM3 (9.4-12.4); MONOCYTES # (AUTO) 0.5 T/MM3 (0-0.8); MONOCYTES % (AUTO) 6.4 % (0-9.0); NEUTROPHILS #(AUTO)-ABSOLUTE 5.2 T/MM3 (1.8-7.7); NEUTROPHILS % (AUTO) 63.7 % (33-66); RED BLOOD COUNT 4.12 M/MM3 (4.00-5.20); WBC - WHITE BLOOD COUNT 8.1 T/MM3 (4.5-11.0)
--- NOTE | 2016-10-15 11:14 | NUR ---
RETURN PT RETURNED FROM XRAY BY CART AT THIS TIME.
--- NOTE | 2016-10-15 11:20 | DI ---
INDICATION: ITS.REASON: cough PROCEDURE: CHEST 2-VIEWS UPRIGHT (PA \T\ LAT) Encounter: Initial COMPARISON: October 12, 2016 FINDINGS: The lungs are clear without evidence of focal abnormal airspace opacity. There is no pleural effusion or pneumothorax. Stable chronic appearing blunting of the left costophrenic angle possibly due to pleural thickening. The heart size, mediastinal contours and pulmonary vascularity are within normal limits. IMPRESSION: No acute cardiopulmonary disease. .
--- NOTE | 2016-10-15 11:22 | ERPDOC ---
Departure Disposition Decision Date: Oct 15, 2016 Disposition Decision Time: 12:58 Disposition: 01 DISCHARGED HOME, SELF-CARE Impression Impression Impression: Primary Impression: COPD (chronic obstructive pulmonary disease) COPD type: unspecified COPD Qualified Codes: J44.9 - Chronic obstructive pulmonary disease, unspecified Severity: Mild Condition: Improved Seen By: Physician only Referrals: Your Local Doctor 1-2 days Patient Instructions: COPD (Chronic Obstructive Pulmonary Disease) (ED) Problems/Meds/Labs Reviewed?: Yes Medications reviewed and manag: Yes Follow up care ordered?: Yes Mental Status: Alert, Oriented Scripts Benzonatate (Tessalon Perle) 100 Mg Capsule 100 MG PO Q8H for COUGH, #20 CAP 0 Refills Prov: SHINE PORTER DO 10/15/16 Ipratropium/Albuterol Sulfate (Combivent Respimat Inhal [place]) 120 Puff/4 Gm Inha 2 PUFF PO QID for cough/wheezing, #1 INHALER 0 Refills Prov: SHINE PORTER DO 10/15/16 Levofloxacin (Levaquin) 500 Mg Tablet 1 TAB PO DAILY for COPD for 7 Days, 0 Refills Prov: SHINE PORTER DO 10/15/16 HPI - Cough/URI General Chief Complaint: Dyspnea/Respdistress Stated Complaint: DIFF BREATHING, Time Seen by Provider: 10:37 Source: patient (Patient presents to the ER with Dyspnea. Apparently, the patient was seen Saturday night in the ER, and started no Steroid and DuoNeb Nebulizer treatments. Patient stated she recently moved her from [place], and couldn't find her Nebulizer this weekend. Patient presents to the ER with increased cough and SOA.) Exam Limitations: no limitations HPI - Cough/URI Occurred At: home Onset/Timing: Changing over time Duration: 1 week Pain/Severity Scale: Now & Worst: 0/10 Prior Episodes/Possible Cause: occasional episodes Modifying Factors: IMPROVES WITH: nebulizer, rest, WORSE WITH: coughing Associated Symptoms: cough, wheezing, DENIES: chest pain/soreness, dizziness, earache, facial pain, fever/chills, headache, muscle aches, nasal congestion, nasal drainage, other, shortness of breath, sinus infection, sore throat Hx of Similar Symptoms: Yes Allergies: Coded Allergies: codeine (Verified Adverse Reaction, Unknown, VOMITING, 10/15/16) Past History Past Medical History Metabolic: hypertension Respiratory: COPD, pneumonia Surgical History General: other Family History Family PMH: FOUND: other Vaccines Hx Influenza Vaccination: Yes Hx Pneumococcal Vaccination: No Social History Smoking Status: Current every day smoker Does patient use chewing tobac: No # of Packs/Tins per Day: / Second Hand Exposure: No Substance Use Type: does not use Alcohol Intake: none Housing: house Household Members: family Current Occupational Status: unemployed Advance Directives: Yes Full Code Record Review Pertinent history updated: Yes Review of Systems Constitutional Constitutional: DENIES: chills, fever Eyes Lids/Accessories: DENIES: erythema, swelling ENMT Ears: DENIES: pain Balance: DENIES: ataxia, vertigo Sinuses: DENIES: congestion, rhinorrhea Mouth/Throat: DENIES: sore throat Cardiovascular Cardiac: dyspnea on exertion, DENIES: chest pain, orthopnea Rhythm/Rate: DENIES: tachycardia Pulmonary Respiratory: cough, DENIES: dyspnea, sputum GI Upper Abdomen: DENIES: nausea, pain, vomiting Lower Abdomen: DENIES: constipation, diarrhea, pain General: DENIES: dysuria Musculoskeletal General: DENIES: cramps, pain, weakness Integumentary Skin: DENIES: color change, itching, rash Neurological General: DENIES: ataxia, change in strength, headache, numbness, poor coordination, seizures, syncope, vertigo, weakness Psychiatric Psychiatric: DENIES: anxiety, depression, nervousness Hematologic/Lymphatic Hematologic/Lymphatic: DENIES: anemia Allergic/Immunological Allergic/Immunoligical: DENIES: sneezing All other Systems All Other Systems: Reviewed and Negative Physical Exam General General Nourishment: well nourished, well developed, appears stated age, adult General Body Habitus: well groomed Vitals and Pain First Documented Vital Signs Date Time Temp Pulse Resp B/P Pulse Ox O2 Delivery O2 Flow Rate FiO2 10/15/16 10:20 98.4 88 20 173/92 95 Room Air Weight: Kilograms: 78.900 Height (feet): 5 Height (inches): 6.00 Triage Pain Scale: RN VS reviewed by Provider: Yes Eyes (brief) Eyes Brief: found: EOMI, PERRL ENMT (brief) ENMT Brief: FOUND: TM clear, TM good light reflex, mucosa moist, NOT FOUND: pharnyx erythema Neck (brief) Neck: FOUND: trachea midline, NOT FOUND: adenopathy, tenderness, tracheal deviation Respiratory (brief) Respiratory: FOUND: equal bilaterally Respiratory Inspection: NOT FOUND: asymmetry, audible stridor, audible wheezing, increased effort Palpation: NOT FOUND: tenderness Auscultation: FOUND: wheezes, NOT FOUND: rales, rhonchi Cardiovascular (brief) Cardiac: FOUND: regular rate, regular rhythm Capillary Refill: <2 sec Pulses: all distal extremities, equal, strong Abdomen (brief) Abdominal Brief: FOUND: bowel normo active x4, soft, NOT FOUND: distended, tender (brief) Female Brief: NOT FOUND: bleeding Lymphatic (brief) Lymphatic Brief: NOT FOUND: adenopathy Musculoskeletal (brief) Musculoskeletal Brief: NOT FOUND: spasm, tenderness Integumentary (brief) Integumentary Brief: FOUND: pink, warm Neurologic (brief) Neurological Brief: FOUND: CN w/o gross def to obs, motor-no gross deficits, sensory-no gross deficits Psychiatric (brief) Psychiatric Brief: FOUND: alert, attentive, normal affect, oriented Differential Diagnoses Differential Diagnoses Considering: Acute Bronchitis, Asthma Exacerbation, COPD Exacerbation, Influenza, Pneumonia, URI, Viral Syndrome, Other Progress Results/Orders Orders Procedure Category Date Status Time Bmp - Basic Metabolic LAB 10/15/16 Complete Panel 10:37 Probnp LAB 10/15/16 Complete 10:37 Cbc W/Auto LAB 10/15/16 Complete Diff-Reflex Manual 10:37 Troponin I W LAB 10/15/16 Complete Hemolysis Index 10:37 EKG EKG 10/15/16 Taken 10:37 Chest, Pa & Lateral RAD 10/15/16 Resulted 10:37 Iv Lock (Ed Only) EDM 10/15/16 Transmitted 10:37 Albuterol/Ipratropium PHA 10/15/16 Complete (Duoneb) 10:45 Oxygen Administration EDM 10/15/16 Transmitted 10:37 Albuterol/Ipratropium PHA 10/15/16 Complete (Duoneb) 12:15 Benzonatate (Tessalon PHA 10/15/16 Complete Perles 200 Mg) 13:15 Lab Results Laboratory Tests Test 10/15/16 11:00 White Blood Count 8.1T/MM3 Red Blood Count 4.12M/MM3 Hemoglobin 13.1GM/DL Hematocrit 39.7% Mean Corpuscular Volume 96.4UM3 Mean Corpuscular Hemoglobin 31.8UUG Mean Corpuscular Hemoglobin Concent 33.0GM/DL RDW Standard Deviation 48.1FL Platelet Count 223T/MM3 Mean Platelet Volume 10.7UM3 Immature Granulocyte % (Auto) 0.2% Neutrophils (%) (Auto) 63.7% Lymphocytes (%) (Auto) 29.1% Monocytes (%) (Auto) 6.4% Eosinophils (%) (Auto) 0.2% Basophils (%) (Auto) 0.4% Absolute Immature Granulocyte (auto 0.02T/MM3 Absolute Neutrophils (auto) 5.2T/MM3 Absolute Lymphocytes (auto) 2.4T/MM3 Absolute Monocytes (auto) 0.5T/MM3 Absolute Eosinophils (auto) 0.0T/MM3 Absolute Basophils (auto) 0.0T/MM3 Turbidity < 20 Sodium Level 145MEQ/L Potassium Level 3.5MEQ/L Chloride Level 109MEQ/L Carbon Dioxide Level 22MEQ/L Anion Gap 14MEQ/L Blood Urea Nitrogen 15.0MG/DL Creatinine 0.7MG/DL Glomerular Filtration Rate Calc 85 BUN/Creatinine Ratio 21RATIO Glucose Level 111MG/DL Calculated Osmolality 281MOSM/KG Calcium Level 8.6MG/DL Icterus Index < 2 Troponin I < 0.012ng/ml OB-Okm-D-Type Natriuretic Peptide 478PG/ML Chemistry Specimen Hemolysis < 15 Medications Current ED Medications Albuterol/ Ipratropium (Duoneb) 3 ml O ONCE AEROSOL Last administered on 11:28; Start 10/15/16 at 10:45; Stop 10/15/16 at 10:46; Status DC Albuterol/ Ipratropium (Duoneb) 3 ml O ONCE AEROSOL Last administered on 12:18; Start 10/15/16 at 12:15; Stop 10/15/16 at 12:16; Status DC Benzonatate (TESSALON PERLES 200 mg) 200 mg O ONCE PO Last administered on 10/15 13:37; Start 10/15/16 at 13:15; Stop 10/15/16 at 13:16; Status DC Progress Progress Patient is feeling better following medications and is wanting to go home I discussed admission, but the patient refused Patient will continue her prescribed steroid and NEB treatments, patient states she will locate her nebulizer Will add Combivent, Levaquin and Tessalon for Cough Patient to follow with her PCP, returning to the ER with worsening symptoms EKG EKG : Rate: 60-100 Rhythm: sinus [place]: normal QRS: normal Intervals: normal ST/T: normal Interpreted by: signing physician EKG ScImage/Picomm EKG interpreted in ScImage/Pic: No Xray Xray : Reason for Exam: Cough / SOA Xray: CXR Portable Interpretation: Normal, Reviewed Written Report SHINE PORTER DO Oct 15, 2016 11:22
[2016-10-15 11:23] LABS: ANION GAP 14 MEQ/L (5-15); BUN/CREATININE RATIO 21 RATIO (6-26); CALCIUM 8.6 MG/DL (8.4-10.2); CHLORIDE 109 MEQ/L (98-107); CO2 - CARBON DIOXIDE 22 MEQ/L (22-30); CREATININE 0.7 MG/DL (0.7-1.2); GLOMERULAR FILTRATION RATE 85; GLUCOSE 111 MG/DL (65-110); POTASSIUM 3.5 MEQ/L (3.6-5); SODIUM 145 MEQ/L (134-144)
--- NOTE | 2016-10-15 11:25 | NUR ---
RT AT BEDSIDE FOR DUONEB TX
[2016-10-15 11:35] LABS: PROBNP 478 PG/ML (0-175)
--- NOTE | 2016-10-15 12:10 | NUR ---
PROVIDER DR. PORTER AT BEDSIDE TO SPEAK WITH PT.
--- NOTE | 2016-10-15 12:19 | NUR ---
RT AT BEDSIDE FOR SECOND DUONEB TX
--- NOTE | 2016-10-15 12:45 | NUR ---
STATUS PT RESTING COMFORTABLY IN CART. DENIES NEEDS AT THIS TIME. EXPIRATORY WHEEZING NOTED THROUGHOUT AFTER BREATHING TX. VSS. CALL LIGHT WITHIN REACH, WILL CONTINUE TO MONITOR.
[2016-10-15] MEDS ORDERED: LEVO500T63 PO (13:03)
[2016-10-15] MEDS ORDERED: IPRA4AER PO (13:03)
[2016-10-15] MEDS ORDERED: BENZ100C97 PO (13:03)
[2016-10-15] MEDS ORDERED: BENZONATATE 200 MG CAPSULE PO ONE (13:15)
[2016-10-15 13:44] VITALS: BP 119/66; PULSE 87; RESP 20; TEMP 98.4; O2SAT 92
--- NOTE | 2016-10-15 13:44 | NUR ---
DISCHARGE WRITTEN INSTRUCTIONS WITH ESTRELLITA NEIL, AND EMETERIO RX REVIEWED AND SENT WITH PT. PT VERBALIZES UNDERSTANDING OF DI AND MEDICATIONS, DENIES QUESTIONS. PT AMBULATES OUT OF ER WITH STEADY GAIT AT THIS TIME.
== END 2016-10-15 13:44 | disposition home or self-care (01) ==
LOC: ED 10:19
DX: J44.9 Chronic obstructive pulmonary disease, unspecified (principal); F17.200 Nicotine dependence, unspecified, uncomplicated
CPT/HCPCS: 80048; 83880; 84484; 85025; 93005; 94640